=== PATIENT | male | born 1985 | race Two or more races ===

== ENCOUNTER 2022-08-28 11:08 | Inpatient (IN) | payer BC, MEDICAID ==
[~2022-08-28] VITALS: Ht 162.6 cm; Wt 58.1 kg
[2022-08-28] MEDS: ACETYLCYSTEINE 200MG/ML 20% VIAL 4ML INH SCH (01:57)
[2022-08-28 12:00] LABS: BASOPHILS % 0.2 % (0.0-2.0); EOSINOPHILS % 0.9 % (0.0-5.0); HEMATOCRIT. 34.8 % (42.0-52.0); HEMOGLOBIN. 11.4 g/dL (14.0-18.0); LYMPHOCYTES % 19.9 % (20.0-50.0); MEAN CORPUSCULAR HEMOGLOBIN 29.8 pg (28.0-32.0); MEAN CORPUSCULAR VOLUME 90.8 fL (80.0-94.0); MONOCYTES % 1.1 % (2.0-8.0); NEUTROPHILS % 77.9 % (40.0-76.0); PLATELET 256 x1000/uL (130-400); RED BLOOD CELL COUNT 3.83 mill/uL (4.7-6.1); RED CELL DISTRIBUTION WIDTH 13.9 % (11.6-14.6)
[2022-08-28 12:04] LABS: CHLORIDE 108 mEq/L (98-107)
[2022-08-28 12:16] LABS: CLARITY URINE CLEAR (CLEAR); COLOR URINE DARK YELLOW (YELLOW); KETONES URINE NEGATIVE (NEGATIVE); LEUKOCYTE ESTERASE URINE 1+ (NEGATIVE); NITRITE URINE NEGATIVE (NEGATIVE); OCCULT BLOOD URINE 3+ (NEGATIVE); PH URINE 5.5 (4.5-8.0); PROTEIN URINE 1+ (NEGATIVE); SPECIFIC GRAVITY URINE 1.026 (1.005-1.030); UROBILINOGEN URINE 0.2 E.U./dL (0.2-1.0)
[2022-08-28] MEDS ORDERED: CEFTRIAXONE 1 G PREMIX 50 ML IV ONE (12:30)
[2022-08-28] MEDS ORDERED: NA PHOS,M-B/NA PHOS,DI-BA ENEMA 118ML PR PRN (13:30)
[2022-08-28] MEDS ORDERED: ONDANSETRON HCL 4MG/2ML INJ IV PRN (13:30)
[2022-08-28] MEDS ORDERED: ACETAMINOPHEN 650MG SUPP PR PRN (13:30)
[2022-08-28] MEDS ORDERED: IPRATROPIUM/ALBUTEROL 0.5-3(2.5)MG/3ML NEB NEB SCH (13:30)
[2022-08-28] MEDS ORDERED: KCL 20MEQ/100ML PREMIX 100 ML IV NR (13:45)
[2022-08-28] MEDS ORDERED: HYDRALAZINE 20MG/ML VIAL IV PRN (13:45)
[2022-08-28 14:20] VITALS: BP 115/78
[2022-08-28 14:49] LABS: PHOSPHORUS 4.5 mg/dL (2.5-4.9)
[2022-08-28] MEDS ORDERED: CEFTRIAXONE 1 G PREMIX 50 ML IV SCH (15:00)
[2022-08-28] MEDS ORDERED: POTASSIUM CHLORIDE 20MEQ/PACKET PO NR (15:00)
[2022-08-28 15:10] LABS: BG BASE EXCESS -0.1 mmol/L (-2.0-2.0); BG CARBOXYHEMOGLOBIN 0.3 % (0.5-1.5); BG DEOXYHEMOGLOBIN 0.8 % (0.0-5.0); BG FRACTION INSPIRED OXYGEN 40; BG HCO3 ACT 22.7 mmol/L (22.0-26.0); BG METHEMOGLOBIN 0.1 % (0.0-1.5); BG OXYGEN SATURATION 99.2 % (92.0-98.5); BG OXYHEMOGLOBIN 98.8 % (94.0-97.0); BG PCO2 31.6 mmHg (35.0-45.0); BG PH 7.475 (7.350-7.450); BG PO2 213.8 mmHg (75.0-100.0); BG SAMPLE SITE LEFT RADIAL; BG TOTAL HEMOGLOBIN 12.7 g/dL (12.0-18.0); BG TOTAL RESPIRATORY RATE 17 b/min; BG VENT MODE VENT - SIMV
[2022-08-28] MEDS ORDERED: IPRATROPIUM/ALBUTEROL 0.5-3(2.5)MG/3ML NEB HHN PRN (15:30)
[2022-08-28] MEDS: SODIUM CHLORIDE 0.9% 1,000 ML IV SCH (15:37)
[2022-08-28] MEDS: ENOXAPARIN 40MG/0.4ML SYR SUBCUT SCH (15:38)
[2022-08-28 16:00] VITALS: BP 114/73
[2022-08-28 16:54] VITALS: BP 116/79
[2022-08-28] MEDS ORDERED: PNEUMOCOCCAL 23-VAL P-SAC VAC 0.5 ML IM ONE (17:30)
[2022-08-28] MEDS: BLOOD SUGAR DIAGNOSTIC STRIP TEST SCH ×2 (17:41→20:43)
[2022-08-28] MEDS: INSULIN LISPRO 100 UNITS/ML SUBCUT SCH ×2 (17:41→20:44)
[2022-08-28 18:00] VITALS: BP 112/82
[2022-08-28 18:20] LABS: *AMPHETAMINES SCREEN URINE NEGATIVE (NEGATIVE); *BARBITURATES SCREEN URINE NEGATIVE (NEGATIVE); *BENZODIAZEPINES SCREEN URINE NEGATIVE (NEGATIVE); *COCAINE SCREEN URINE NEGATIVE (NEGATIVE); CANNABINOID URINE SCREEN NEGATIVE (NEGATIVE); METHADONE URINE SCREEN NEGATIVE (NEGATIVE); OPIATES URINE SCREEN NEGATIVE (NEGATIVE); PHENCYCLIDINE URINE SCREEN NEGATIVE (NEGATIVE)
[2022-08-28 20:00] VITALS: BP 102/77
[2022-08-28] MEDS ORDERED: METOPROLOL TARTRATE 25MG TABLET PO SCH (20:15)
[2022-08-28] MEDS: IPRATROPIUM/ALBUTEROL 0.5-3(2.5)MG/3ML NEB HHN SCH (20:22)
[2022-08-28] MEDS: DEXTROSE 50% WATER 50ML SYRINGE IV PRN (20:35)
[2022-08-28] MEDS: ASCORBIC ACID 500 MG TABLET PO SCH (20:43)
[2022-08-28] MEDS: INSULIN GLARGINE 100 UNITS/ML SUBCUT SCH (21:42)
[2022-08-28] MEDS: CLONAZEPAM 0.5MG TABLET PO SCH (21:50)
[2022-08-28] MEDS: LACTOBACILLUS GG CAPSULE PO SCH (21:54)
[2022-08-28 22:00] VITALS: BP 120/76
[2022-08-28] MEDS: TOPIRAMATE 100MG TABLET PO SCH (22:36)
[2022-08-28] MEDS: LEVETIRACETAM 500MG TABLET PO SCH (22:36)
[2022-08-29] VITALS (12 sets, daily range): BP systolic 98–128; BP diastolic 62–81
[2022-08-29] MEDS: IPRATROPIUM/ALBUTEROL 0.5-3(2.5)MG/3ML NEB HHN SCH ×4 (01:57→21:24)
[2022-08-29] MEDS: BLOOD SUGAR DIAGNOSTIC STRIP TEST SCH ×5 (03:49→20:54)
[2022-08-29] MEDS: INSULIN LISPRO 100 UNITS/ML SUBCUT SCH ×5 (04:00→20:00)
[2022-08-29] MEDS: SODIUM CHLORIDE 0.9% 1,000 ML IV SCH (04:08)
[2022-08-29] MEDS: DEXTROSE 50% WATER 50ML SYRINGE IV PRN ×4 (04:08→15:01)
[2022-08-29] MEDS ORDERED: DEXT 5%/0.9% NACL 1,000 ML IV SCH (05:45)
[2022-08-29 06:17] LABS: BASOPHILS % 0.4 % (0.0-2.0); EOSINOPHILS % 2.1 % (0.0-5.0); HEMATOCRIT. 35.2 % (42.0-52.0); HEMOGLOBIN. 11.5 g/dL (14.0-18.0); LYMPHOCYTES % 14.1 % (20.0-50.0); MEAN CORPUSCULAR HEMOGLOBIN 30.2 pg (28.0-32.0); MEAN CORPUSCULAR VOLUME 92.6 fL (80.0-94.0); MEAN PLATELET VOLUME 10.3 fl (7.4-10.4); MONOCYTES % 5.1 % (2.0-8.0); NEUTROPHILS % 78.3 % (40.0-76.0); PLATELET 236 x1000/uL (130-400); RED CELL DISTRIBUTION WIDTH 14.2 % (11.6-14.6)
[2022-08-29] MEDS ORDERED: MINOCYCLINE HCL 100 MG CAPSULE PO SCH (08:00)
[2022-08-29] MEDS: ZINC SULFATE 220 MG ( 50 ) CAPSULE PO SCH (08:11)
[2022-08-29] MEDS: TOPIRAMATE 100MG TABLET PO SCH ×2 (08:11→21:40)
[2022-08-29] MEDS: ASCORBIC ACID 500 MG TABLET PO SCH ×2 (08:11→21:31)
[2022-08-29] MEDS: LEVETIRACETAM 500MG TABLET PO SCH ×2 (08:11→21:31)
[2022-08-29] MEDS: URSODIOL 300MG CAPSULE PO SCH ×2 (08:11→18:31)
[2022-08-29 08:12] LABS: BG BASE EXCESS -2.9 mmol/L (-2.0-2.0); BG CARBOXYHEMOGLOBIN 0.3 % (0.5-1.5); BG DEOXYHEMOGLOBIN 1.3 % (0.0-5.0); BG HCO3 ACT 20.2 mmol/L (22.0-26.0); BG METHEMOGLOBIN 0.1 % (0.0-1.5); BG OXYGEN SATURATION 98.7 % (92.0-98.5); BG OXYHEMOGLOBIN 98.3 % (94.0-97.0); BG PH 7.447 (7.350-7.450); BG PO2 160.7 mmHg (75.0-100.0); BG SAMPLE SITE RIGHT RADIAL; BG TOTAL HEMOGLOBIN 11.7 g/dL (12.0-18.0); BG VENT MODE VENT - AC
[2022-08-29] MEDS: PANTOPRAZOLE SODIUM 40 MG/VIAL IV SCH (08:12)
[2022-08-29] MEDS: LACTOBACILLUS GG CAPSULE PO SCH (08:14)
[2022-08-29 08:45] LABS: HEPATITIS B SURFACE ANTIGEN NEGATIVE
[2022-08-29] MEDS ORDERED: INFLUENZA VACCINE 05/PF 0.5 ML SYRINGE IM ONE (10:00)
[2022-08-29 10:03] LABS: CHLORIDE 113 mEq/L (98-107)
[2022-08-29 10:25] LABS: HDL CHOLESTEROL 36 mg/dL (40-59); LDL CHOLESTEROL 76 mg/dL (5-100); PHOSPHORUS 4.4 mg/dL (2.5-4.9)
[2022-08-29] MEDS: CEFTRIAXONE 1,000 MG in DEXTROSE 5% WATER 50 ML IV SCH (13:01)
[2022-08-29] MEDS: ENOXAPARIN 40MG/0.4ML SYR SUBCUT SCH (15:04)
[2022-08-29] MEDS: DEXTROSE 10% WATER 1,000 ML IV SCH (15:48)
[2022-08-29] MEDS: ACETYLCYSTEINE 200MG/ML 20% VIAL 4ML INH SCH ×2 (16:12→22:00)
[2022-08-29] MEDS: ACETAMINOPHEN 650MG SUPP PR PRN (18:49)
[2022-08-29] MEDS: INSULIN GLARGINE 100 UNITS/ML SUBCUT SCH (21:41)
[2022-08-29] MEDS: CLONAZEPAM 0.5MG TABLET PO SCH (21:41)
[2022-08-30] VITALS (14 sets, daily range): BP systolic 92–128; BP diastolic 61–81
[2022-08-30] MEDS: ACETYLCYSTEINE 200MG/ML 20% VIAL 4ML INH SCH ×4 (02:28→22:00)
[2022-08-30] MEDS: IPRATROPIUM/ALBUTEROL 0.5-3(2.5)MG/3ML NEB HHN SCH ×4 (02:28→20:34)
[2022-08-30] MEDS: DEXTROSE 10% WATER 1,000 ML IV SCH ×3 (02:35→21:06)
[2022-08-30] MEDS: INSULIN LISPRO 100 UNITS/ML SUBCUT SCH ×6 (04:00→20:00)
[2022-08-30] MEDS: BLOOD SUGAR DIAGNOSTIC STRIP TEST SCH ×6 (04:32→20:00)
[2022-08-30] MEDS: ASCORBIC ACID 500 MG TABLET PO SCH ×2 (08:13→21:03)
[2022-08-30] MEDS: LEVETIRACETAM 500MG TABLET PO SCH ×2 (08:13→21:02)
[2022-08-30] MEDS: TOPIRAMATE 100MG TABLET PO SCH ×2 (08:13→21:02)
[2022-08-30] MEDS: ZINC SULFATE 220 MG ( 50 ) CAPSULE PO SCH (08:14)
[2022-08-30] MEDS: ACETAMINOPHEN 650MG SUPP PR PRN ×2 (08:14→21:03)
[2022-08-30] MEDS: PANTOPRAZOLE SODIUM 40 MG/VIAL IV SCH (08:14)
[2022-08-30] MEDS: LACTOBACILLUS GG CAPSULE PO SCH (08:14)
[2022-08-30] MEDS: URSODIOL 300MG CAPSULE PO SCH ×2 (08:14→18:10)
[2022-08-30 08:35] LABS: BASOPHILS % 0.5 % (0.0-2.0); HEMATOCRIT. 31.1 % (42.0-52.0); HEMOGLOBIN. 10.4 g/dL (14.0-18.0); LYMPHOCYTES % 11.7 % (20.0-50.0); MEAN CORPUSCULAR HEMOGLOBIN 30.2 pg (28.0-32.0); MEAN CORPUSCULAR VOLUME 89.9 fL (80.0-94.0); MEAN PLATELET VOLUME 9.2 fl (7.4-10.4); MONOCYTES % 3.9 % (2.0-8.0); NEUTROPHILS % 81.9 % (40.0-76.0); PLATELET 257 x1000/uL (130-400); RED BLOOD CELL COUNT 3.46 mill/uL (4.7-6.1); RED CELL DISTRIBUTION WIDTH 13.3 % (11.6-14.6)
[2022-08-30 09:26] LABS: CHLORIDE 108 mEq/L (98-107)
[2022-08-30] MEDS: CEFTRIAXONE 1,000 MG in DEXTROSE 5% WATER 50 ML IV SCH (11:57)
[2022-08-30] MEDS: ENOXAPARIN 40MG/0.4ML SYR SUBCUT SCH (15:16)
[2022-08-30] MEDS: CLONAZEPAM 0.5MG TABLET PO SCH (21:02)
[2022-08-30] MEDS: INSULIN GLARGINE 100 UNITS/ML SUBCUT SCH (21:09)
[2022-08-31] VITALS (16 sets, daily range): BP systolic 107–127; BP diastolic 60–83
[2022-08-31] MEDS: ACETYLCYSTEINE 200MG/ML 20% VIAL 4ML INH SCH ×3 (02:04→15:19)
[2022-08-31] MEDS: IPRATROPIUM/ALBUTEROL 0.5-3(2.5)MG/3ML NEB HHN SCH ×4 (02:04→20:01)
[2022-08-31] MEDS: BLOOD SUGAR DIAGNOSTIC STRIP TEST SCH ×7 (04:00→23:04)
[2022-08-31] MEDS: INSULIN LISPRO 100 UNITS/ML SUBCUT SCH ×7 (04:00→23:04)
[2022-08-31 05:30] LABS: BASOPHILS % 0.4 % (0.0-2.0); EOSINOPHILS % 2.5 % (0.0-5.0); HEMATOCRIT. 32.6 % (42.0-52.0); HEMOGLOBIN. 10.9 g/dL (14.0-18.0); LYMPHOCYTES % 15.5 % (20.0-50.0); MEAN CORPUSCULAR HEMOGLOBIN 29.8 pg (28.0-32.0); MEAN CORPUSCULAR VOLUME 88.7 fL (80.0-94.0); MEAN PLATELET VOLUME 9.3 fl (7.4-10.4); MONOCYTES % 4.7 % (2.0-8.0); NEUTROPHILS % 76.9 % (40.0-76.0); PLATELET 259 x1000/uL (130-400); RED BLOOD CELL COUNT 3.67 mill/uL (4.7-6.1); RED CELL DISTRIBUTION WIDTH 13.6 % (11.6-14.6)
[2022-08-31 05:46] LABS: CHLORIDE 109 mEq/L (98-107)
[2022-08-31] MEDS: PANTOPRAZOLE SODIUM 40 MG/VIAL IV SCH (08:04)
[2022-08-31] MEDS: TOPIRAMATE 100MG TABLET PO SCH ×2 (08:04→21:38)
[2022-08-31] MEDS: LEVETIRACETAM 500MG TABLET PO SCH ×2 (08:04→21:38)
[2022-08-31] MEDS: ASCORBIC ACID 500 MG TABLET PO SCH ×2 (08:04→21:38)
[2022-08-31] MEDS: ZINC SULFATE 220 MG ( 50 ) CAPSULE PO SCH (08:04)
[2022-08-31] MEDS: URSODIOL 300MG CAPSULE PO SCH ×2 (08:04→17:35)
[2022-08-31] MEDS: DEXTROSE 10% WATER 1,000 ML IV SCH ×2 (08:10→17:36)
[2022-08-31] MEDS: LACTOBACILLUS GG CAPSULE PO SCH (08:10)
[2022-08-31] MEDS ORDERED: IOHEXOL-300 100 ML BOTTLE ONE (10:29)
[2022-08-31] MEDS: MEROPENEM 1,000 MG in SODIUM CHLORIDE 0.9% 100 ML IV SCH ×2 (11:24→17:35)
[2022-08-31] MEDS: ENOXAPARIN 40MG/0.4ML SYR SUBCUT SCH (15:22)
[2022-08-31] MEDS: CLONAZEPAM 0.5MG TABLET PO SCH (21:38)
[2022-08-31] MEDS: INSULIN GLARGINE 100 UNITS/ML SUBCUT SCH (22:00)
[2022-09-01] VITALS (13 sets, daily range): BP systolic 96–127; BP diastolic 54–88
[2022-09-01] MEDS: MEROPENEM 1,000 MG in SODIUM CHLORIDE 0.9% 100 ML IV SCH ×2 (01:48→09:51)
[2022-09-01] MEDS: ACETYLCYSTEINE 200MG/ML 20% VIAL 4ML INH SCH ×2 (02:19→12:01)
[2022-09-01] MEDS: IPRATROPIUM/ALBUTEROL 0.5-3(2.5)MG/3ML NEB HHN SCH ×4 (02:20→20:26)
[2022-09-01 02:58] LABS: BASOPHILS % 0.7 % (0.0-2.0); EOSINOPHILS % 1.8 % (0.0-5.0); HEMATOCRIT. 29.9 % (42.0-52.0); LYMPHOCYTES % 8.5 % (20.0-50.0); MEAN CORPUSCULAR HEMOGLOBIN 30.4 pg (28.0-32.0); MEAN CORPUSCULAR VOLUME 90.9 fL (80.0-94.0); MEAN PLATELET VOLUME 8.7 fl (7.4-10.4); PLATELET 260 x1000/uL (130-400); RED BLOOD CELL COUNT 3.29 mill/uL (4.7-6.1); RED CELL DISTRIBUTION WIDTH 13.7 % (11.6-14.6)
[2022-09-01 03:02] LABS: CHLORIDE 109 mEq/L (98-107)
[2022-09-01 03:04] LABS: PROTHROMBIN TIME 10.3 sec (9.6-11.0)
[2022-09-01] MEDS: INSULIN LISPRO 100 UNITS/ML SUBCUT SCH ×6 (04:00→23:39)
[2022-09-01] MEDS: DEXTROSE 10% WATER 1,000 ML IV SCH ×3 (04:00→23:54)
[2022-09-01] MEDS: BLOOD SUGAR DIAGNOSTIC STRIP TEST SCH ×6 (04:00→23:39)
[2022-09-01] MEDS: ASCORBIC ACID 500 MG TABLET PO SCH ×2 (09:50→20:40)
[2022-09-01] MEDS: URSODIOL 300MG CAPSULE PO SCH ×2 (09:50→18:54)
[2022-09-01] MEDS: PANTOPRAZOLE SODIUM 40 MG/VIAL IV SCH (09:50)
[2022-09-01] MEDS: TOPIRAMATE 100MG TABLET PO SCH ×2 (09:50→20:40)
[2022-09-01] MEDS: LEVETIRACETAM 500MG TABLET PO SCH ×2 (09:50→20:40)
[2022-09-01] MEDS: LACTOBACILLUS GG CAPSULE PO SCH (09:51)
[2022-09-01] MEDS: ZINC SULFATE 220 MG ( 50 ) CAPSULE PO SCH (09:51)
[2022-09-01] MEDS ORDERED: PIPERACILLIN/TAZOBACTAM 3.375 G in DEXTROSE 5% WATER 50 ML IV SCH (14:00)
[2022-09-01 15:02] LABS: AMYLASE 140 IU/L (25-115)
[2022-09-01] MEDS ORDERED: GADOTERATE MEGLUMINE 5 MMOL/10 ML VIAL IV ONE (15:42)
[2022-09-01] MEDS ORDERED: FENTANYL CITRATE/PF 50MCG/ML 2ML VIAL ONE (16:08)
[2022-09-01] MEDS ORDERED: MIDAZOLAM HCL 5 MG/5 ML VIAL ONE ×2 (16:09)
[2022-09-01] MEDS ORDERED: MIDAZOLAM HCL 2 MG/2 ML VIAL IV PRN (16:33)
[2022-09-01] MEDS: COLISTIMETHATE SODIUM 150MG/VIAL INH SCH (20:26)
[2022-09-01] MEDS: DEXTROSE 50% WATER 50ML SYRINGE IV PRN (20:33)
[2022-09-01] MEDS: CLONAZEPAM 0.5MG TABLET PO SCH (20:40)
[2022-09-01] MEDS: MINOCYCLINE HCL 50 MG CAPSULE PO SCH (20:41)
[2022-09-01] MEDS: INSULIN GLARGINE 100 UNITS/ML SUBCUT SCH (22:00)
[2022-09-02] VITALS (12 sets, daily range): BP systolic 104–127; BP diastolic 62–82
[2022-09-02] MEDS: IPRATROPIUM/ALBUTEROL 0.5-3(2.5)MG/3ML NEB HHN SCH ×4 (00:27→19:52)
[2022-09-02] MEDS: ACETYLCYSTEINE 200MG/ML 20% VIAL 4ML INH SCH ×3 (00:27→15:26)
[2022-09-02] MEDS: BLOOD SUGAR DIAGNOSTIC STRIP TEST SCH ×6 (04:00→23:53)
[2022-09-02] MEDS: INSULIN LISPRO 100 UNITS/ML SUBCUT SCH ×6 (04:00→23:57)
[2022-09-02] MEDS: METOCLOPRAMIDE HCL 10MG/2ML VIAL IV SCH ×4 (05:10→23:56)
[2022-09-02 06:46] LABS: BASOPHILS % 0.3 % (0.0-2.0); EOSINOPHILS % 1.4 % (0.0-5.0); HEMATOCRIT. 31.4 % (42.0-52.0); HEMOGLOBIN. 10.2 g/dL (14.0-18.0); LYMPHOCYTES % 9.7 % (20.0-50.0); MEAN CORPUSCULAR HEMOGLOBIN 30.2 pg (28.0-32.0); MEAN CORPUSCULAR VOLUME 92.8 fL (80.0-94.0); MEAN PLATELET VOLUME 8.6 fl (7.4-10.4); MONOCYTES % 3.3 % (2.0-8.0); NEUTROPHILS % 85.3 % (40.0-76.0); PLATELET 249 x1000/uL (130-400); RED BLOOD CELL COUNT 3.39 mill/uL (4.7-6.1)
[2022-09-02 08:19] LABS: CHLORIDE 108 mEq/L (98-107)
[2022-09-02 08:41] LABS: AMYLASE 439 IU/L (25-115)
[2022-09-02] MEDS: COLISTIMETHATE SODIUM 150MG/VIAL INH SCH (08:48)
[2022-09-02] MEDS: LACTOBACILLUS GG CAPSULE PO SCH (09:26)
[2022-09-02] MEDS: PANTOPRAZOLE SODIUM 40 MG/VIAL IV SCH (09:26)
[2022-09-02] MEDS: ENOXAPARIN 40MG/0.4ML SYR SUBCUT SCH (09:26)
[2022-09-02] MEDS: ASCORBIC ACID 500 MG TABLET PO SCH ×2 (09:27→20:57)
[2022-09-02] MEDS: URSODIOL 300MG CAPSULE PO SCH ×2 (09:27→18:33)
[2022-09-02] MEDS: ZINC SULFATE 220 MG ( 50 ) CAPSULE PO SCH (09:27)
[2022-09-02] MEDS: LEVETIRACETAM 500MG TABLET PO SCH ×2 (09:27→20:57)
[2022-09-02] MEDS: MINOCYCLINE HCL 50 MG CAPSULE PO SCH ×2 (09:28→20:56)
[2022-09-02] MEDS: TOPIRAMATE 100MG TABLET PO SCH ×2 (09:28→20:57)
[2022-09-02] MEDS: DEXTROSE 10% WATER 1,000 ML IV SCH ×2 (09:30→20:42)
[2022-09-02] MEDS ORDERED: VANCOMYCIN 1.25GM PMX (XELLIA) 250 ML IV NR (18:00)
[2022-09-02 18:30] LABS: CLARITY URINE CLOUDY (CLEAR); COLOR URINE DARK YELLOW (YELLOW); KETONES URINE NEGATIVE (NEGATIVE); LEUKOCYTE ESTERASE URINE 3+ (NEGATIVE); NITRITE URINE POSITIVE (NEGATIVE); OCCULT BLOOD URINE TRACE (NEGATIVE); PH URINE 5.5 (4.5-8.0); PROTEIN URINE 1+ (NEGATIVE)
[2022-09-02] MEDS ORDERED: METOCLOPRAMIDE HCL 10MG/2ML VIAL IV NR (18:30)
[2022-09-02] MEDS ORDERED: POLYMYXIN B SULFATE IV NR (19:00)
[2022-09-02] MEDS ORDERED: DEXT 5% IV NR (19:00)
[2022-09-02] MEDS ORDERED: WATER IV NR (19:00)
[2022-09-02] MEDS: CLONAZEPAM 0.5MG TABLET PO SCH (20:57)
[2022-09-02] MEDS: METRONIDAZOLE 500MG TABLET PO SCH (21:06)
[2022-09-02] MEDS: INSULIN GLARGINE 100 UNITS/ML SUBCUT SCH (21:30)
[2022-09-03] VITALS (13 sets, daily range): BP systolic 100–156; BP diastolic 62–93
[2022-09-03] MEDS: IPRATROPIUM/ALBUTEROL 0.5-3(2.5)MG/3ML NEB HHN SCH ×4 (01:37→21:19)
[2022-09-03] MEDS: VANCOMYCIN 750MG PREMIX 150 ML IV SCH ×3 (03:07→17:04)
[2022-09-03] MEDS: INSULIN LISPRO 100 UNITS/ML SUBCUT SCH ×5 (04:00→20:00)
[2022-09-03] MEDS: BLOOD SUGAR DIAGNOSTIC STRIP TEST SCH ×6 (04:00→23:55)
[2022-09-03] MEDS: DEXT 5% IV SCH ×2 (05:14→17:03)
[2022-09-03] MEDS: POLYMYXIN B SULFATE IV SCH ×2 (05:14→17:03)
[2022-09-03] MEDS: WATER IV SCH ×2 (05:14→17:03)
[2022-09-03] MEDS: METOCLOPRAMIDE HCL 10MG/2ML VIAL IV SCH ×4 (05:15→23:22)
[2022-09-03] MEDS: DEXTROSE 10% WATER 1,000 ML IV SCH ×2 (05:15→23:26)
[2022-09-03 05:53] LABS: BASOPHILS % 0.2 % (0.0-2.0); EOSINOPHILS % 2.5 % (0.0-5.0); HEMATOCRIT. 27.8 % (42.0-52.0); HEMOGLOBIN. 9.3 g/dL (14.0-18.0); LYMPHOCYTES % 10.7 % (20.0-50.0); MEAN PLATELET VOLUME 8.4 fl (7.4-10.4); MONOCYTES % 3.9 % (2.0-8.0); NEUTROPHILS % 82.7 % (40.0-76.0); PLATELET 231 x1000/uL (130-400); RED BLOOD CELL COUNT 3.09 mill/uL (4.7-6.1); RED CELL DISTRIBUTION WIDTH 13.6 % (11.6-14.6)
[2022-09-03 06:14] LABS: CHLORIDE 108 mEq/L (98-107)
[2022-09-03 06:50] LABS: AMYLASE 95 IU/L (25-115)
[2022-09-03] MEDS: ENOXAPARIN 40MG/0.4ML SYR SUBCUT SCH (09:00)
[2022-09-03] MEDS: LEVETIRACETAM 500MG TABLET PO SCH ×2 (09:07→20:37)
[2022-09-03] MEDS: LACTOBACILLUS GG CAPSULE PO SCH (09:07)
[2022-09-03] MEDS: ASCORBIC ACID 500 MG TABLET PO SCH ×2 (09:07→20:37)
[2022-09-03] MEDS: ZINC SULFATE 220 MG ( 50 ) CAPSULE PO SCH (09:07)
[2022-09-03] MEDS: TOPIRAMATE 100MG TABLET PO SCH ×2 (09:08→20:37)
[2022-09-03] MEDS: METRONIDAZOLE 500MG TABLET PO SCH ×2 (09:08→20:37)
[2022-09-03] MEDS: PANTOPRAZOLE SODIUM 40 MG/VIAL IV SCH (09:10)
[2022-09-03] MEDS: URSODIOL 300MG CAPSULE PO SCH ×2 (09:11→18:53)
[2022-09-03] MEDS: MINOCYCLINE HCL 50 MG CAPSULE PO SCH ×2 (09:15→22:22)
[2022-09-03] MEDS: KCL 20MEQ/100ML PREMIX 100 ML IV SCH ×2 (09:27→16:56)
[2022-09-03] MEDS ORDERED: GLUCAGON,HUMAN RECOMBINANT 1MG/VIAL IM PRN (11:15)
[2022-09-03] MEDS: ACETAMINOPHEN 650MG SUPP PR PRN (12:28)
[2022-09-03] MEDS ORDERED: MINOCYCLINE HCL 100 MG CAPSULE PO NR (22:00)
[2022-09-04] VITALS (12 sets, daily range): BP systolic 99–132; BP diastolic 64–86
[2022-09-04] MEDS: VANCOMYCIN 750MG PREMIX 150 ML IV SCH ×2 (00:41→10:59)
[2022-09-04] MEDS: IPRATROPIUM/ALBUTEROL 0.5-3(2.5)MG/3ML NEB HHN SCH ×4 (02:17→20:30)
[2022-09-04] MEDS: BLOOD SUGAR DIAGNOSTIC STRIP TEST SCH ×6 (04:00→23:28)
[2022-09-04] MEDS: INSULIN LISPRO 100 UNITS/ML SUBCUT SCH ×7 (04:00→23:28)
[2022-09-04] MEDS: WATER IV SCH ×2 (04:32→17:55)
[2022-09-04] MEDS: POLYMYXIN B SULFATE IV SCH ×2 (04:32→17:55)
[2022-09-04] MEDS: DEXT 5% IV SCH ×2 (04:32→17:55)
[2022-09-04] MEDS: METOCLOPRAMIDE HCL 10MG/2ML VIAL IV SCH ×4 (04:33→23:06)
[2022-09-04 06:00] LABS: BASOPHILS % 0.1 % (0.0-2.0); EOSINOPHILS % 4.3 % (0.0-5.0); HEMATOCRIT. 28.3 % (42.0-52.0); HEMOGLOBIN. 9.3 g/dL (14.0-18.0); LYMPHOCYTES % 12.2 % (20.0-50.0); MEAN CORPUSCULAR HEMOGLOBIN 29.7 pg (28.0-32.0); MEAN CORPUSCULAR VOLUME 90.3 fL (80.0-94.0); MEAN PLATELET VOLUME 8.3 fl (7.4-10.4); MONOCYTES % 5.9 % (2.0-8.0); NEUTROPHILS % 77.5 % (40.0-76.0); PLATELET 230 x1000/uL (130-400); RED BLOOD CELL COUNT 3.14 mill/uL (4.7-6.1); RED CELL DISTRIBUTION WIDTH 13.9 % (11.6-14.6)
[2022-09-04 06:17] LABS: CHLORIDE 108 mEq/L (98-107)
[2022-09-04] MEDS: ACETAMINOPHEN 650MG SUPP PR PRN (07:53)
[2022-09-04] MEDS: TOPIRAMATE 100MG TABLET PO SCH ×2 (08:29→21:42)
[2022-09-04] MEDS: ASCORBIC ACID 500 MG TABLET PO SCH ×2 (08:29→21:42)
[2022-09-04] MEDS: ZINC SULFATE 220 MG ( 50 ) CAPSULE PO SCH (08:29)
[2022-09-04] MEDS: LEVETIRACETAM 500MG TABLET PO SCH ×2 (08:29→21:42)
[2022-09-04] MEDS: URSODIOL 300MG CAPSULE PO SCH ×2 (08:29→17:51)
[2022-09-04] MEDS: METRONIDAZOLE 500MG TABLET PO SCH (08:29)
[2022-09-04] MEDS: LACTOBACILLUS GG CAPSULE PO SCH (08:29)
[2022-09-04] MEDS: PANTOPRAZOLE SODIUM 40 MG/VIAL IV SCH (08:30)
[2022-09-04] MEDS: ENOXAPARIN 40MG/0.4ML SYR SUBCUT SCH (08:37)
[2022-09-04 09:05] LABS: AMYLASE 80 IU/L (25-115)
[2022-09-04] MEDS: CLOPIDOGREL 75MG TABLET PO SCH (10:39)
[2022-09-04] MEDS: ASPIRIN 81MG TABLET PO SCH (10:39)
[2022-09-04] MEDS: NYSTATIN 100,000 UNITS/GM CREAM 15GM TOP SCH ×3 (10:58→17:50)
[2022-09-04] MEDS: MINOCYCLINE HCL 100 MG CAPSULE PO SCH ×2 (10:58→21:54)
[2022-09-04] MEDS: MENTHOL/LANOLIN/CALAMINE/ZN OX OINT 71GM TOP SCH ×3 (10:59→17:50)
[2022-09-04] MEDS: MEROPENEM 1,000 MG in SODIUM CHLORIDE 0.9% 100 ML IV SCH ×2 (15:36→23:05)
[2022-09-04] MEDS: DEXTROSE 10% WATER 1,000 ML IV SCH (15:37)
[2022-09-04] MEDS ORDERED: KETOROLAC 30MG/ML VIAL IV PRN (17:00)
[2022-09-05] VITALS (13 sets, daily range): BP systolic 84–123; BP diastolic 48–86
[2022-09-05] MEDS: IPRATROPIUM/ALBUTEROL 0.5-3(2.5)MG/3ML NEB HHN SCH ×4 (00:18→21:09)
[2022-09-05] MEDS: INSULIN LISPRO 100 UNITS/ML SUBCUT SCH ×5 (04:00→20:00)
[2022-09-05] MEDS: BLOOD SUGAR DIAGNOSTIC STRIP TEST SCH ×5 (04:11→20:00)
[2022-09-05] MEDS: METOCLOPRAMIDE HCL 10MG/2ML VIAL IV SCH ×3 (05:34→17:53)
[2022-09-05] MEDS: POLYMYXIN B SULFATE IV SCH (05:34)
[2022-09-05] MEDS: DEXT 5% IV SCH (05:34)
[2022-09-05] MEDS: WATER IV SCH (05:34)
[2022-09-05 07:20] LABS: BASOPHILS % 0.3 % (0.0-2.0); EOSINOPHILS % 6.7 % (0.0-5.0); HEMOGLOBIN. 8.5 g/dL (14.0-18.0); LYMPHOCYTES % 9.5 % (20.0-50.0); MEAN CORPUSCULAR HEMOGLOBIN 29.9 pg (28.0-32.0); MEAN CORPUSCULAR VOLUME 87.7 fL (80.0-94.0); MEAN PLATELET VOLUME 8.5 fl (7.4-10.4); MONOCYTES % 4.8 % (2.0-8.0); NEUTROPHILS % 78.7 % (40.0-76.0); PLATELET 229 x1000/uL (130-400); RED BLOOD CELL COUNT 2.85 mill/uL (4.7-6.1); RED CELL DISTRIBUTION WIDTH 13.6 % (11.6-14.6)
[2022-09-05] MEDS: URSODIOL 300MG CAPSULE PO SCH ×2 (08:00→18:10)
[2022-09-05] MEDS: LEVETIRACETAM 500MG TABLET PO SCH ×2 (10:47→20:25)
[2022-09-05] MEDS: ASCORBIC ACID 500 MG TABLET PO SCH ×2 (10:47→20:25)
[2022-09-05] MEDS: ASPIRIN 81MG TABLET PO SCH (10:47)
[2022-09-05] MEDS: MEROPENEM 1,000 MG in SODIUM CHLORIDE 0.9% 100 ML IV SCH (10:47)
[2022-09-05] MEDS: ZINC SULFATE 220 MG ( 50 ) CAPSULE PO SCH (10:48)
[2022-09-05] MEDS: MINOCYCLINE HCL 100 MG CAPSULE PO SCH (10:48)
[2022-09-05] MEDS: CLOPIDOGREL 75MG TABLET PO SCH (10:48)
[2022-09-05] MEDS: MENTHOL/LANOLIN/CALAMINE/ZN OX OINT 71GM TOP SCH ×3 (10:49→16:22)
[2022-09-05] MEDS: NYSTATIN 100,000 UNITS/GM CREAM 15GM TOP SCH ×3 (10:49→16:22)
[2022-09-05] MEDS: TOPIRAMATE 100MG TABLET PO SCH ×2 (10:51→20:25)
[2022-09-05] MEDS: PANTOPRAZOLE SODIUM 40 MG/VIAL IV SCH (10:51)
[2022-09-05] MEDS: ENOXAPARIN 40MG/0.4ML SYR SUBCUT SCH (10:52)
[2022-09-05] MEDS: LACTOBACILLUS GG CAPSULE PO SCH (15:37)
[2022-09-05] MEDS: DEXTROSE 10% WATER 1,000 ML IV SCH (15:42)
[2022-09-05] MEDS: ACETAMINOPHEN 325MG TABLET PO PRN (16:21)
[2022-09-06] VITALS (12 sets, daily range): BP systolic 104–142; BP diastolic 63–90
[2022-09-06] MEDS: IPRATROPIUM/ALBUTEROL 0.5-3(2.5)MG/3ML NEB HHN SCH ×4 (02:31→20:24)
[2022-09-06] MEDS: BLOOD SUGAR DIAGNOSTIC STRIP TEST SCH ×6 (04:00→20:00)
[2022-09-06] MEDS: INSULIN LISPRO 100 UNITS/ML SUBCUT SCH ×6 (04:00→20:00)
[2022-09-06] MEDS: METOCLOPRAMIDE HCL 10MG/2ML VIAL IV SCH ×4 (05:56→17:26)
[2022-09-06 07:50] LABS: BASOPHILS % 0.2 % (0.0-2.0); HEMATOCRIT. 24.6 % (42.0-52.0); HEMOGLOBIN. 8.2 g/dL (14.0-18.0); LYMPHOCYTES % 11.9 % (20.0-50.0); MEAN CORPUSCULAR HEMOGLOBIN 29.9 pg (28.0-32.0); MEAN CORPUSCULAR VOLUME 89.4 fL (80.0-94.0); MEAN PLATELET VOLUME 8.6 fl (7.4-10.4); MONOCYTES % 6.3 % (2.0-8.0); NEUTROPHILS % 73.6 % (40.0-76.0); PLATELET 242 x1000/uL (130-400); RED BLOOD CELL COUNT 2.75 mill/uL (4.7-6.1); RED CELL DISTRIBUTION WIDTH 13.9 % (11.6-14.6)
[2022-09-06] MEDS: ACETAMINOPHEN 325MG TABLET PO PRN (11:26)
[2022-09-06] MEDS: ENOXAPARIN 40MG/0.4ML SYR SUBCUT SCH (11:26)
[2022-09-06] MEDS: ASPIRIN 81MG TABLET PO SCH (11:26)
[2022-09-06] MEDS: PANTOPRAZOLE SODIUM 40 MG/VIAL IV SCH (11:26)
[2022-09-06] MEDS: LEVETIRACETAM 500MG TABLET PO SCH ×2 (11:27→22:17)
[2022-09-06] MEDS: TOPIRAMATE 100MG TABLET PO SCH ×2 (11:27→22:17)
[2022-09-06] MEDS: CLOPIDOGREL 75MG TABLET PO SCH (11:27)
[2022-09-06] MEDS: URSODIOL 300MG CAPSULE PO SCH ×2 (11:27→17:26)
[2022-09-06] MEDS: ASCORBIC ACID 500 MG TABLET PO SCH ×2 (11:28→22:17)
[2022-09-06] MEDS: MENTHOL/LANOLIN/CALAMINE/ZN OX OINT 71GM TOP SCH ×3 (11:29→16:23)
[2022-09-06] MEDS: NYSTATIN 100,000 UNITS/GM CREAM 15GM TOP SCH ×3 (11:29→16:23)
[2022-09-06] MEDS: DEXTROSE 10% WATER 1,000 ML IV SCH (11:32)
[2022-09-06] MEDS: LACTOBACILLUS GG CAPSULE PO SCH (11:53)
[2022-09-06] MEDS: ZINC SULFATE 220 MG ( 50 ) CAPSULE PO SCH (11:53)
[2022-09-07] VITALS (11 sets, daily range): BP systolic 101–124; BP diastolic 68–87
[2022-09-07] MEDS: IPRATROPIUM/ALBUTEROL 0.5-3(2.5)MG/3ML NEB HHN SCH ×4 (02:25→20:31)
[2022-09-07] MEDS: BLOOD SUGAR DIAGNOSTIC STRIP TEST SCH ×7 (04:00→23:16)
[2022-09-07] MEDS: INSULIN LISPRO 100 UNITS/ML SUBCUT SCH ×7 (04:00→23:16)
[2022-09-07] MEDS: DEXTROSE 10% WATER 1,000 ML IV SCH ×2 (04:19→23:17)
[2022-09-07] MEDS: METOCLOPRAMIDE HCL 10MG/2ML VIAL IV SCH ×5 (06:40→23:15)
[2022-09-07 07:51] LABS: HEMATOCRIT. 24.2 % (42.0-52.0); HEMOGLOBIN. 8.3 g/dL (14.0-18.0); MEAN CORPUSCULAR HEMOGLOBIN 30.1 pg (28.0-32.0); MEAN CORPUSCULAR VOLUME 88.3 fL (80.0-94.0); MEAN PLATELET VOLUME 8.8 fl (7.4-10.4); PLATELET 237 x1000/uL (130-400); RED BLOOD CELL COUNT 2.74 mill/uL (4.7-6.1); RED CELL DISTRIBUTION WIDTH 13.1 % (11.6-14.6)
[2022-09-07] MEDS: URSODIOL 300MG CAPSULE PO SCH ×2 (08:00→18:46)
[2022-09-07] MEDS: MENTHOL/LANOLIN/CALAMINE/ZN OX OINT 71GM TOP SCH ×3 (09:00→18:46)
[2022-09-07] MEDS: ZINC SULFATE 220 MG ( 50 ) CAPSULE PO SCH (09:00)
[2022-09-07] MEDS: LEVETIRACETAM 500MG TABLET PO SCH ×2 (09:00→21:17)
[2022-09-07] MEDS: ENOXAPARIN 40MG/0.4ML SYR SUBCUT SCH (09:00)
[2022-09-07] MEDS: CLOPIDOGREL 75MG TABLET PO SCH (09:00)
[2022-09-07] MEDS: ASPIRIN 81MG TABLET PO SCH (09:00)
[2022-09-07] MEDS: PANTOPRAZOLE SODIUM 40 MG/VIAL IV SCH (09:00)
[2022-09-07] MEDS: ASCORBIC ACID 500 MG TABLET PO SCH ×2 (09:00→21:17)
[2022-09-07] MEDS: NYSTATIN 100,000 UNITS/GM CREAM 15GM TOP SCH ×3 (09:00→17:00)
[2022-09-07] MEDS: TOPIRAMATE 100MG TABLET PO SCH ×2 (09:00→21:17)
[2022-09-07] MEDS: LACTOBACILLUS GG CAPSULE PO SCH (09:00)
[2022-09-07 10:27] LABS: PLATELET ESTIMATE NORMAL
[2022-09-07 11:38] LABS: CHLORIDE 109 mEq/L (98-107)
[2022-09-08] VITALS (12 sets, daily range): BP systolic 106–129; BP diastolic 69–91
[2022-09-08] MEDS: IPRATROPIUM/ALBUTEROL 0.5-3(2.5)MG/3ML NEB HHN SCH ×4 (01:32→20:16)
[2022-09-08] MEDS: INSULIN LISPRO 100 UNITS/ML SUBCUT SCH ×6 (04:00→23:14)
[2022-09-08] MEDS: BLOOD SUGAR DIAGNOSTIC STRIP TEST SCH ×6 (04:00→23:13)
[2022-09-08] MEDS: METOCLOPRAMIDE HCL 10MG/2ML VIAL IV SCH ×4 (05:36→23:13)
[2022-09-08 08:27] LABS: HEMATOCRIT. 26.5 % (42.0-52.0); HEMOGLOBIN. 8.8 g/dL (14.0-18.0); MEAN CORPUSCULAR HEMOGLOBIN 29.7 pg (28.0-32.0); MEAN CORPUSCULAR VOLUME 89.8 fL (80.0-94.0); MEAN PLATELET VOLUME 8.8 fl (7.4-10.4); PLATELET 259 x1000/uL (130-400); RED BLOOD CELL COUNT 2.95 mill/uL (4.7-6.1); RED CELL DISTRIBUTION WIDTH 13.5 % (11.6-14.6)
[2022-09-08] MEDS: PANTOPRAZOLE SODIUM 40 MG/VIAL IV SCH (08:28)
[2022-09-08] MEDS: TOPIRAMATE 100MG TABLET PO SCH ×2 (08:28→20:15)
[2022-09-08] MEDS: ASCORBIC ACID 500 MG TABLET PO SCH ×2 (08:28→20:15)
[2022-09-08] MEDS: ZINC SULFATE 220 MG ( 50 ) CAPSULE PO SCH (08:28)
[2022-09-08] MEDS: LEVETIRACETAM 500MG TABLET PO SCH ×2 (08:28→20:15)
[2022-09-08] MEDS: ASPIRIN 81MG TABLET PO SCH (08:28)
[2022-09-08] MEDS: CLOPIDOGREL 75MG TABLET PO SCH (08:28)
[2022-09-08] MEDS: URSODIOL 300MG CAPSULE PO SCH ×2 (08:28→17:49)
[2022-09-08] MEDS: ENOXAPARIN 40MG/0.4ML SYR SUBCUT SCH (08:29)
[2022-09-08] MEDS: MENTHOL/LANOLIN/CALAMINE/ZN OX OINT 71GM TOP SCH ×3 (08:30→17:20)
[2022-09-08] MEDS: NYSTATIN 100,000 UNITS/GM CREAM 15GM TOP SCH ×3 (08:30→17:20)
[2022-09-08] MEDS: LACTOBACILLUS GG CAPSULE PO SCH (08:32)
[2022-09-08 09:31] LABS: BG BASE EXCESS -2.8 mmol/L (-2.0-2.0); BG CARBOXYHEMOGLOBIN 0.3 % (0.5-1.5); BG DEOXYHEMOGLOBIN 0.7 % (0.0-5.0); BG FRACTION INSPIRED OXYGEN 30; BG HCO3 ACT 19.9 mmol/L (22.0-26.0); BG METHEMOGLOBIN 0.3 % (0.0-1.5); BG OXYGEN SATURATION 99.3 % (92.0-98.5); BG OXYHEMOGLOBIN 98.7 % (94.0-97.0); BG PCO2 26.9 mmHg (35.0-45.0); BG PH 7.487 (7.350-7.450); BG PO2 158.8 mmHg (75.0-100.0); BG SAMPLE SITE RIGHT BRACHIAL; BG TOTAL HEMOGLOBIN 8.7 g/dL (12.0-18.0); BG VENT MODE VENT - AC
[2022-09-08 10:34] LABS: CHLORIDE 109 mEq/L (98-107)
[2022-09-08 10:42] LABS: PHOSPHORUS 4.7 mg/dL (2.5-4.9)
[2022-09-08 13:41] LABS: PLATELET ESTIMATE NORMAL
[2022-09-08] MEDS: DEXTROSE 10% WATER 1,000 ML IV SCH (20:16)
[2022-09-09] VITALS (11 sets, daily range): BP systolic 106–151; BP diastolic 59–93
[2022-09-09] MEDS: IPRATROPIUM/ALBUTEROL 0.5-3(2.5)MG/3ML NEB HHN SCH ×4 (01:36→13:43)
[2022-09-09] MEDS: INSULIN LISPRO 100 UNITS/ML SUBCUT SCH ×4 (04:00→16:00)
[2022-09-09] MEDS: BLOOD SUGAR DIAGNOSTIC STRIP TEST SCH ×4 (04:00→16:00)
[2022-09-09] MEDS: METOCLOPRAMIDE HCL 10MG/2ML VIAL IV SCH ×3 (05:04→17:30)
[2022-09-09 07:02] LABS: HEMOGLOBIN 10.1 g/dL (14.0-18.0); MEAN CORPUSCULAR HEMOGLOBIN 30.7 pg (28.0-32.0); MEAN CORPUSCULAR VOLUME 90.8 fL (80.0-94.0); PLATELET 299 x1000/uL (130-400); RED CELL DISTRIBUTION WIDTH 14.2 % (11.6-14.6)
[2022-09-09 08:45] LABS: CHLORIDE 109 mEq/L (98-107)
[2022-09-09] MEDS: ENOXAPARIN 40MG/0.4ML SYR SUBCUT SCH (10:07)
[2022-09-09] MEDS: LEVETIRACETAM 500MG TABLET PO SCH (10:08)
[2022-09-09] MEDS: ASPIRIN 81MG TABLET PO SCH (10:08)
[2022-09-09] MEDS: CLOPIDOGREL 75MG TABLET PO SCH (10:08)
[2022-09-09] MEDS: URSODIOL 300MG CAPSULE PO SCH ×2 (10:08→17:31)
[2022-09-09] MEDS: TOPIRAMATE 100MG TABLET PO SCH (10:08)
[2022-09-09] MEDS: ASCORBIC ACID 500 MG TABLET PO SCH (10:08)
[2022-09-09] MEDS: ZINC SULFATE 220 MG ( 50 ) CAPSULE PO SCH (10:08)
[2022-09-09] MEDS: ACETAMINOPHEN 325MG TABLET PO PRN ×2 (10:09→14:21)
[2022-09-09] MEDS: MENTHOL/LANOLIN/CALAMINE/ZN OX OINT 71GM TOP SCH ×3 (10:09→17:30)
[2022-09-09] MEDS: NYSTATIN 100,000 UNITS/GM CREAM 15GM TOP SCH ×3 (10:09→17:30)
[2022-09-09] MEDS: LACTOBACILLUS GG CAPSULE PO SCH (10:13)
[2022-09-09] MEDS: PANTOPRAZOLE SODIUM 40 MG/VIAL IV SCH (10:14)
[2022-09-09 15:41] LABS: BG BASE EXCESS -2.5 mmol/L (-2.0-2.0); BG CARBOXYHEMOGLOBIN 0.3 % (0.5-1.5); BG DEOXYHEMOGLOBIN 1.3 % (0.0-5.0); BG HCO3 ACT 20.6 mmol/L (22.0-26.0); BG METHEMOGLOBIN 0.2 % (0.0-1.5); BG OXYGEN SATURATION 98.7 % (92.0-98.5); BG OXYHEMOGLOBIN 98.2 % (94.0-97.0); BG PCO2 29.5 mmHg (35.0-45.0); BG PH 7.461 (7.350-7.450); BG PO2 149.2 mmHg (75.0-100.0); BG SAMPLE SITE RIGHT RADIAL; BG TOTAL HEMOGLOBIN 10.3 g/dL (12.0-18.0); BG VENT MODE VENT - SIMV
== END 2022-09-09 23:33 | DRG 91 ==
LOC: ER 11:08 → EDBEDREQ 11:29 → EDBEDREQSVC 11:41 → 5EST 12:43 → EDBEDREQTM 12:47 → EDBEDREQ 12:47 → ENRESERV 13:04
PROVIDERS: ADMIT Internal Medicine; ATTEND Internal Medicine
PROC: 5A1955Z Respiratory Ventilation, Greater than 96 Consecutive Hours (ICD-10-PCS; principal; 2022-08-28)
PROC: 0DH63UZ Insertion of Feeding Device into Stomach, Percutaneous Approach (ICD-10-PCS; 2022-09-01)
PROC: 0DB78ZX Excision of Stomach, Pylorus, Via Natural or Artificial Opening Endoscopic, Diagnostic (ICD-10-PCS; 2022-09-02)
PROC: 4A00X4Z Measurement of Central Nervous Electrical Activity, External Approach (ICD-10-PCS; 2022-09-03)
PROC: 02HV33Z Insertion of Infusion Device into Superior Vena Cava, Percutaneous Approach (ICD-10-PCS; 2022-09-03)
PROC: B548ZZA Ultrasonography of Superior Vena Cava, Guidance (ICD-10-PCS; 2022-09-03)
DX: G93.1 Anoxic brain damage, not elsewhere classified (principal); I21.4 Non-ST elevation (NSTEMI) myocardial infarction; J96.20 Acute and chronic respiratory failure, unspecified whether with hypoxia or hypercapnia; K72.00 Acute and subacute hepatic failure without coma; N39.0 Urinary tract infection, site not specified; Z16.24 Resistance to multiple antibiotics; Z99.11 Dependence on respirator [ventilator] status; R64 Cachexia; E16.2 Hypoglycemia, unspecified; K29.70 Gastritis, unspecified, without bleeding; D64.9 Anemia, unspecified; E87.6 Hypokalemia; I25.10 Atherosclerotic heart disease of native coronary artery without angina pectoris; I73.00 Raynaud's syndrome without gangrene; K76.0 Fatty (change of) liver, not elsewhere classified; L30.9 Dermatitis, unspecified; R74.01 Elevation of levels of liver transaminase levels; R94.31 Abnormal electrocardiogram [ECG] [EKG]; K83.8 Other specified diseases of biliary tract; R13.12 Dysphagia, oropharyngeal phase; Z20.822 Contact with and (suspected) exposure to COVID-19; Z79.82 Long term (current) use of aspirin; Z93.0 Tracheostomy status; Z68.22 Body mass index [BMI] 22.0-22.9, adult
CPT/HCPCS: 36415; 36573; 36600; 71045; 74176; 74177; 74183; 76700; 80048; 80053; 80061; 80076; 80202; 80305; 81003; 82105; 82140; 82150; 82375; 82378; 82728; 82805; 82962; 83036; 83540; 83550; 83605; 83735; 84100; 84145; 84439; 84443; 84481; 84484; 85025; 85027; 86301; 86705; 86709; 86803; 87070; 87077; 87186; 87340; 87426; 88305; 90686; 93005; 93970; 94002; 94003; 94640; 99285; A9577; C1725; C9113; C9803; J0360; J0696; J0770; J1650; J1815; J1885; J2185; J2250; J2405; J2543; J2765; J3010; J3370; J3480; J3490; J7042; J7050; J7060; J7608; Q9967; U0003; U0005; A4315